=== PATIENT | female | born 1995 | race Two or more races ===

== ENCOUNTER 2024-07-24 06:30 | Inpatient (IN) ==
[2024-07-24] MEDS: NS 1,000 ML IV 1,000 ML ONE (07:00)
[2024-07-24] MEDS ORDERED: NUBAIN INJ 20 MG AMP IVP PRN (07:01)
[2024-07-24] MEDS ORDERED: REGLAN INJ 10 MG VIAL IVP PRN (07:01)
[2024-07-24] MEDS ORDERED: ZOFRAN INJ 4 MG VIAL IVP PRN (07:01)
[2024-07-24] MEDS: LR 1,000 ML IV 1,000 ML IV SCH (07:18)
[2024-07-24 07:33] LABS: URIC ACID 4.8 mg/dL (2.6-6.0)
--- NOTE | 2024-07-24 07:38 | DR.OB ---
OB QUICK NOTE Assessment/Plan (1) Elective induction of labor planned: Assessment/Plan: L&D 07/24/24 at 7:25am S-No complaint, but notes mild CTX starting last night. O-Afebrile,VSS [id number] with good LTV, +accel, no decel. CTX=q 2-5 min., mild by palpation CVX=3-4cm/50%/-1/VTX AROM with clear fluid. IUPC and FSE placed. A-IUP at 39 3/7 weeks for induction CHTN IDDM P-Begin pitocin induction F/U labs Anticipate
[2024-07-24] MEDS: OXYTOCIN 20 UNIT/1,000 ML-NS 20 UNIT/1,000 ML PLAST..BAG IV PRN (07:45)
[2024-07-24] MEDS: LR 1,000 ML IV 1,000 ML IV ONE (08:00)
[2024-07-24] MEDS: XYLOCAINE 1 % (PLAIN) ONE ×2 (09:00→15:16)
[2024-07-24] MEDS: NAROPIN EPIDURAL 0.2% 100 ML ONE (09:30)
[2024-07-24] MEDS: FENTANYL VIAL INJ 100 mcg ONE (09:30)
[2024-07-24] MEDS: NS 1,000 ML IV 1,000 ML IV ONE (10:44)
--- NOTE | 2024-07-24 12:21 | DR.OB ---
OB QUICK NOTE Assessment/Plan (1) Elective induction of labor planned: Assessment/Plan: L&D 07/24/24 at 12:15pm Pitocin=6mu/min. S-No complaint. s/p epidural. O-Afebrile,VSS GOY=[id number] with good LTV, +accel, no decel except mild variables. CTX=q 1 1/2 to 2 min., about 35-55mmHg CVX=8cm/90%/-1 A-IUP at 39 1/7 weeks for induction CHTN IDDM P-Cont. pitocin induction Anticipate
[2024-07-24] MEDS: BETADINE SOLN ONE (15:11)
[2024-07-24] MEDS: PITOCIN IVP ONE (15:13)
[2024-07-24] MEDS ORDERED: MOTRIN TAB 600 MG PO PRN (15:33)
[2024-07-24] MEDS ORDERED: NovoLIN R (or HumuLIN R) SUBCUT PRN (17:04)
[2024-07-24] MEDS ORDERED: MILK OF MAGNESIA PO PRN (17:04)
[2024-07-24] MEDS ORDERED: AMBIEN PO PRN (17:04)
--- NOTE | 2024-07-24 17:14 | DR.OB ---
OB QUICK NOTE Assessment/Plan (1) Elective induction of labor planned: Assessment/Plan: Delivery Note [facility] 07/23/24 at 15:11 (late entry) Patient complete and pushing. Mother and in stable condition. Head delivered over intact perineum. No nuchal cord. Nose and mouth bulb suctioned. Body delivered over intact perineum. Cord clamped x 2 and cut. handed to attendant. Cord sent for gases. Placenta delivered spontaneously / intact / 3 vessel cord. No CVX tears. A second degree midline tear noted and repaired with 0-vicryl in usual fashion. Viable male infant delivered by , VTX/OA, wt=8'10" and 8/9, stable to NBN. Mother stable to RR. MXT=176bq.
[2024-07-24] MEDS: MOTRIN TAB 800 MG PO PRN (17:29)
[2024-07-24] MEDS: DERMOPLAST PAIN RELIEF SPRAY TOP PRN (17:30)
[2024-07-24] MEDS: OXYTOCIN 20 UNIT/1,000 ML-NS 20 UNIT/1,000 ML PLAST..BAG IV SCH (17:33)
[2024-07-24] MEDS ORDERED: SNACK - Diabetic Appropriate PO SCH ×2 (20:00)
[2024-07-24] MEDS: NovoLIN R (or HumuLIN R) SUBCUT PRN (20:37)
[2024-07-24] MEDS: NORMODYNE TAB 100 MG PO SCH (20:37)
[2024-07-24] MEDS: LANTUS SC SCH (20:37)
[2024-07-24] MEDS: PERCOCET TAB 5/325 MG PO PRN (20:45)
[2024-07-24] MEDS: NUBAIN INJ 10 MG AMP ONE (21:09)
[2024-07-24] MEDS: ADACEL or BOOSTRIX TDaP VACCINE IM ONE (22:22)
[2024-07-24] MEDS: SNACK - Diabetic Appropriate PO SCH (22:23)
[2024-07-25 04:50] LABS: HEMATOCRIT 35.3 % (36.0-47.0); HEMOGLOBIN 12.4 g/dL (12.0-16.0)
[2024-07-25] MEDS: DEPO-PROVERA CONTRACEPTIVE INJ IM ONE ×2 (09:47→11:15)
[2024-07-25] MEDS: PRENATAL PLUS PO SCH (11:12)
[2024-07-25 12:47] VITALS: RESP 20; O2SAT 100
[2024-07-25 16:56] VITALS: BP 108/66; PULSE 84; TEMP 97.5
== END 2024-07-25 16:40 | disposition home or self-care (01) | DRG 806 ==
LOC: U 06:46 → MED/SURG 17:10
PROVIDERS: ADMIT Specialist; ATTEND Specialist